=== PATIENT | male | born 1970 | race Caucasian/White ===

== ENCOUNTER 2021-12-13 19:19 | Emergency (ER) | payer MEDICARE, OTHER ==
[~2021-12-13] VITALS: Ht 177.8 cm; Wt 133.3 kg
--- NOTE | 2021-12-13 20:30 | PHYS DOC ---
Past History Past Surgical History: Appendectomy, Cholecystectomy, Other Additional Past Surgical Histo: Shoulder surgery 08/08 General Adult EDM: Chief Complaint: Palpitations HPI: HPI: Patient is a 50-year-old male coming in for palpitations entheses feels like his heart fluttering), tightness in his left upper back, and occasional diaphoresis. Patient states he has been seen for palpitations prior and was diagnosed with PVCs. Patient states that getting worse over the past 6 months. He says it is worse that he feels a fluttering in his chest when he goes to lay down at night. Patient drinks about a pot of coffee but is cut down over the past week. Patient also states that about 3 weeks ago he had swelling in his left lower extremity and ankle that is since gone away. Patient is a history of Crohn's and PTSD Review of Systems: Review of Systems: All other systems within normal limits except for as noted in the HPI Allergies: Allergies: Allergies Coded Allergies Type Severity Reaction Last Updated Verified Penicillins Allergy Unknown 12/13/21 Yes Physical Exam: PE: Constitutional: Well developed, well nourished, no acute distress, non-toxic appearance. [] HENT: Normocephalic, atraumatic, bilateral external ears normal, nose normal. [] Eyes: PERRLA, conjunctiva normal, no discharge. [] Neck: No rigidity, supple, no stridor. [] Cardiovascular: Regular rate and rhythm, brisk cap refill [] Lungs & Thorax: Non labored symmetric respirations, no tachypnea or respiratory distress [] Abdomen: Soft, nondistended. Skin: Warm, dry, no erythema, no rash. [] Back: Unremarkable Extremities: No deformities, range of motion grossly intact, no lower extremity edema [] Neurologic: Alert and oriented X 3, no focal deficits noted. [] Psychologic: Affect normal, judgement normal, mood normal. [] Current Patient Data: Vital Signs: Vital Signs Date Time Temp Pulse Resp B/P (MAP) Pulse Ox O2 Delivery O2 Flow Rate FiO2 12/13/21 20:14 98.4 81 20 155/72 (99) 99 Room Air EKG: EKG: Sinus rhythm, heart rate 87, normal axis, no ST elevation depression, no ectopy, normal intervals [] Radiology/Procedures: Radiology/Procedures: [address] [place] [address] IMAGING REPORT Signed PATIENT: LUIS GUZMAN ACCOUNT: [id number] : 1970 LOCATION: ER AGE: 50 SEX: M EXAM STATUS: REG ER ORD. PHYSICIAN: RAY BONNER MD REASON: left shoulder pain PROCEDURE: CHEST PA & LATERAL XR CHEST 2V History: Reason: Pain/ Spl. Instructions: / History: Comparison: None. Findings: No consolidation or pleural effusion. Normal heart size. No pneumothorax. Impression: 1. No acute cardiopulmonary process. Electronically signed by: Joe Carft DO (12/13/2021 9:37 PM) [facility] DICTATED AND SIGNED BY: JOE CRAFT DO DATE: 12/13/212136 CC: RAY BONNER MD; [facility] ~ [] Heart Score: C/O Chest Pain: No Risk Factors: Risk Factors: DM, Current or recent (<one month) smoker, HTN, HLP, family history of CAD, obesity. Risk Scores: Score 0 - 3: 2.5% MACE over next 6 weeks - Discharge Home Score 4 - 6: 20.3% MACE over next 6 weeks - Admit for Clinical Observation Score 7 - 10: 72.7% MACE over next 6 weeks - Early Invasive Strategies Course & Med Decision Making: Course & Med Decision Making Pertinent Labs and Imaging studies reviewed. (See chart for details) [] Dragon Disclaimer: Dragon Disclaimer: This electronic medical record was generated, in whole or in part, using a voice recognition dictation system. Departure Departure: Impression: Primary Impression: PVC (premature ventricular contraction) Disposition: HOME / SELF CARE / HOMELESS Condition: STABLE Referrals: [facility] (PCP) Patient Instructions: Premature Ventricular Contraction Additional Instructions: [facility] [id number] [address] RAY BONNER MD December 13, 2021 20:30
[2021-12-13 21:15] LABS: BASO # 0.1 x10^3/uL (0.0-0.2); BASO % 2 % (0-3); EOS # 0.2 x10^3/uL (0.0-0.7); EOS % 5 % (0-3); HEMATOCRIT 39.4 % (39.0-53.0); LYMPH # 0.9 x10^3/uL (1.0-4.8); LYMPH % 18 % (24-48); MEAN CORPUSCULAR HEMOGLOBIN 32 pg (25-35); MEAN CORPUSCULAR HGB CONC 35 g/dL (31-37); MEAN CORPUSCULAR VOLUME 89 fL (79-100); MONO # 0.4 x10^3/uL (0.0-1.1); MONO % 8 % (0-9); NEUT # 3.5 x10^3uL (1.8-7.7); NEUT % 68 % (31-73); PLATELET COUNT 170 x10^3/uL (140-400); RED BLOOD COUNT 4.44 x10^6/uL (4.30-5.70); RED CELL DISTRIBUTION WIDTH 15.1 % (11.5-14.5); WHITE BLOOD COUNT 5.2 x10^3/uL (4.0-11.0)
[2021-12-13 21:20] LABS: CALCIUM 8.9 mg/dL (8.5-10.1); GFR 79.1; POTASSIUM 3.7 mmol/L (3.5-5.1)
[2021-12-13 21:33] LABS: ALBUMIN/GLOBULIN RATIO 1.5 (1.0-1.7); MAGNESIUM 2.1 mg/dL (1.8-2.4); TOTAL PROTEIN 6.7 g/dL (6.4-8.2)
--- NOTE | 2021-12-13 21:40 | RAD ---
XR CHEST 2V History: Reason: Pain/ Spl. Instructions: / History: Comparison: None. Findings: No consolidation or pleural effusion. Normal heart size. No pneumothorax. Impression: 1. No acute cardiopulmonary process. Electronically signed by: Joe Craft DO (12/13/2021 9:37 PM) [facility] [place]
[2021-12-13 22:14] LABS: INFLUENZA A PATIENT NEGATIVE (NEGATIVE); INFLUENZA B PATIENT NEGATIVE (NEGATIVE)
[2021-12-13] MEDS ORDERED: KETOROLAC 30 MG/ML VIAL. ONE (22:29)
[2021-12-13] MEDS ORDERED: KETOROLAC 15 MG/ML VIAL. IVP ONE (22:30)
[2021-12-13 23:04] LABS: BARBITURATES NEG (NEG); BENZODIAZEPINES NEG (NEG); CANNABINOIDS NEG (NEG); COCAINE NEG (NEG); METHADONE NEG (NEG); OPIATES NEG (NEG); PHENCYCLIDINE NEG (NEG)
[2021-12-13 23:05] LABS: AMPHETAMINE/METHAMPHETAMINE NEG (NEG)
[2021-12-13 23:56] VITALS: BP 121/70
== END 2021-12-13 23:57 | disposition home or self-care (01) ==
LOC: ER 19:19
DX: I49.3 Ventricular premature depolarization (principal); Z20.822 Contact with and (suspected) exposure to COVID-19; Z88.0 Allergy status to penicillin
CPT/HCPCS: 36415; 71046; 80053; 80307; 83735; 83880; 84100; 84484; 85025; 85379; 87428; 93005; 96374; 96375; 99285; C9803; G0480; J1885; J3010; U0003